=== PATIENT | male | born 1960 | race Caucasian/White ===

== ENCOUNTER 2022-04-16 06:25 | Outpatient (REF) | payer BC, SELFPAY ==
[2022-04-16 06:36] LABS: MANUAL DIFF FLAG NO
[2022-04-16 07:25] LABS: Basophils Absolute Auto 0.1 X10*3/uL (0.0-0.2); Basophils Percent Auto 1.4 % (0-2); Eosinophils Absolute Auto 0.4 X10*3/uL (0.0-0.4); Eosinophils Percent Auto 6.8 % (0-4); Hematocrit 43.8 % (42.0-52.0); Hemoglobin 15.1 g/dl (14.0-18.0); Imm Gran Abs Auto 0.01 X10*3/uL (0.00-0.03); Imm Gran Pct Auto 0.2 % (0.0-0.4); Lymphocytes Absolute Auto 1.5 X10*3/uL (1.2-4.9); Lymphocytes Percent Auto 29.9 % (20-40); Mean Corpuscular HGB Conc 34.5 g/dl (31.0-36.0); Mean Corpuscular Hemoglobin 29.9 pg (27.0-33.0); Mean Corpuscular Volume 86.7 fL (80.0-98.0); Monocytes Absolute Auto 0.6 X10*3/uL (0.1-1.2); Monocytes Percent Auto 11.1 % (2-11); Neutrophils Absolute Auto 2.6 x10*3/uL (2.0-8.3); Neutrophils Percent Auto 50.6 % (45-73); Platelet Count 268 X10*3/uL (160-400); Red Blood Count 5.05 X10*6/uL (4.60-5.80); Red Cell Distribution Width 12.7 % (11.0-16.0); White Blood Count 5.1 X10*3/uL (4.8-10.8)
[2022-04-16 07:43] LABS: Alanine Aminotransferase 23 U/L (0-40); Albumin Level 4.1 g/dL (3.5-5.0); Alkaline Phosphatase 63 U/L (39-117); Anion Gap 14 (12-20); Aspartate Amino Transferase 20 U/L (5-37); Bilirubin Total 0.5 mg/dL (0.0-1.0); Blood Urea Nitrogen 15 mg/dL (9-16); Calcium 8.8 mg/dL (8.4-10.2); Carbon Dioxide 24 mmol/L (22-29); Chloride 106 mmol/L (96-108); Cholesterol 218 mg/dL; Estimated Glomerular Filt Rate > 60; Glucose Fasting 115 mg/dL (60-99); HDL Cholesterol 46 mg/dL; LDL Cholesterol Calculated 155 mg/dl; Potassium 4.1 mmol/L (3.3-5.1); Sodium 140 mmol/L (135-145); Total Protein 6.7 g/dL (6.5-8.0); Triglycerides 85 mg/dL
[2022-04-16 08:05] LABS: Free T4 (Free Thyroxine) 1.24 ng/dL (0.71-1.85); Prostate Specific Antigen 0.39 ng/mL (<0.05-4.0); Thyroid Stimulating Hormone 3.23 uIU/mL (0.32-4.0)
== END 2022-04-16 06:26 | disposition home or self-care (01) ==
LOC: HO.LAB 06:25
PROVIDERS: PCP Internal Medicine; Visit Provider Internal Medicine
DX: Z00.00 Encounter for general adult medical examination without abnormal findings (principal); Z12.5 Encounter for screening for malignant neoplasm of prostate; E03.9 Hypothyroidism, unspecified
CPT/HCPCS: 36415; 80053; 80061; 84153; 84439; 84443; 85025

== ENCOUNTER → 2022-08-06 10:55 | Outpatient (REF) | payer BC, SELFPAY ==
--- NOTE | 2022-08-06 | HM_ITS ---
Conclusion: 1. Patient was monitored for total period of 3 days 2. Baseline was normal sinus rhythm with average heart rate of 65 beats per minute 3. Frequent sinus bradycardia with heart rate below 60 beats per minute 40% of the time 4. Total of 10,181 isolated PVCs accounting for 4.5% of total beats account for frequent PVCs 5. No significant pauses noted 6. Patient reported 4 symptoms with skipped heartbeats correlating with PVCs MTDD
== END ==
LOC: HO.CARD 10:55
PROVIDERS: PCP Internal Medicine; Visit Provider Internal Medicine
DX: R00.2 Palpitations (principal); I49.3 Ventricular premature depolarization
CPT/HCPCS: 93242

== ENCOUNTER → 2022-09-17 10:19 | Outpatient (BNVA) | payer BC, SELFPAY | PROVIDERS: PCP Internal Medicine; Visit Provider Surgery | DX: Z13.89 Encounter for screening for other disorder (principal) ==

== ENCOUNTER 2023-06-16 05:58 | Outpatient (REF) | payer BC, SELFPAY ==
[2023-06-16 07:14] LABS: Basophils Absolute Auto 0.1 X10*3/uL (0.0-0.2); Basophils Percent Auto 0.7 % (0-2); Eosinophils Absolute Auto 0.6 X10*3/uL (0.0-0.4); Eosinophils Percent Auto 8.9 % (0-4); Hematocrit 43.8 % (42.0-52.0); Hemoglobin 15.1 g/dl (14.0-18.0); Imm Gran Abs Auto 0.02 X10*3/uL (0.00-0.03); Imm Gran Pct Auto 0.3 % (0.0-0.4); Lymphocytes Percent Auto 29.4 % (20-40); MANUAL DIFF FLAG SCAN; Mean Corpuscular HGB Conc 34.5 g/dl (31.0-36.0); Mean Corpuscular Hemoglobin 30.6 pg (27.0-33.0); Mean Corpuscular Volume 88.7 fL (80.0-98.0); Mean Platelet Volume 10.3 fL (9.4-12.4); Monocytes Absolute Auto 0.6 X10*3/uL (0.1-1.2); Monocytes Percent Auto 7.9 % (2-11); Neutrophils Absolute Auto 3.7 x10*3/uL (2.0-8.3); Neutrophils Percent Auto 52.8 % (45-73); Platelet Count 286 X10*3/uL (160-400); Red Blood Count 4.94 X10*6/uL (4.60-5.80); Red Cell Distribution Width 12.7 % (11.0-16.0); SCAN SMEAR FLAG 1; White Blood Count 6.9 X10*3/uL (4.8-10.8)
[2023-06-16 07:37] LABS: Alanine Aminotransferase 30 U/L (0-40); Albumin Level 4.1 g/dL (3.5-5.0); Alkaline Phosphatase 74 U/L (39-117); Anion Gap 16 (12-20); Aspartate Amino Transferase 23 U/L (5-37); Bilirubin Total 0.5 mg/dL (0.0-1.0); Blood Urea Nitrogen 14 mg/dL (9-16); Calcium 9.3 mg/dL (8.4-10.2); Carbon Dioxide 23 mmol/L (22-29); Chloride 106 mmol/L (96-108); Cholesterol 162 mg/dL (<200); Estimated Glomerular Filt Rate > 60; Glucose Fasting 101 mg/dL (60-99); HDL Cholesterol 51 mg/dL (>40); LDL Cholesterol Calculated 99 mg/dL (<100); Potassium 3.7 mmol/L (3.3-5.1); Sodium 141 mmol/L (135-145); Triglycerides 60 mg/dL (<150)
[2023-06-16 07:52] LABS: Free T4 (Free Thyroxine) 1.02 ng/dL (0.71-1.85); Thyroid Stimulating Hormone 4.85 uIU/mL (0.32-4.0)
[2023-06-16 08:01] LABS: SLIDE REVIEW VERIFIED
== END 2023-06-16 05:59 | disposition home or self-care (01) ==
LOC: HO.LAB 05:58
PROVIDERS: PCP Internal Medicine; Visit Provider Internal Medicine
DX: E78.00 Pure hypercholesterolemia, unspecified (principal); E03.9 Hypothyroidism, unspecified; I10 Essential (primary) hypertension
CPT/HCPCS: 36415; 80053; 80061; 84439; 84443; 85025

== ENCOUNTER 2023-10-04 14:49 | Emergency (ER) | payer BC, SELFPAY ==
--- NOTE | ~2023-10-04 | XR_ITS ---
EXAMINATION: 1. RADIOGRAPHS RIGHT ANKLE 2. RADIOGRAPHS RIGHT FOOT CLINICAL INFORMATION: Fall. Twisting injury. COMPARISON: None available TECHNIQUE: 3 views of the right ankle and 3 views of the right foot were obtained. FINDINGS: Visualized portion of the distal right tibia and fibula demonstrate no fracture. Ankle mortise is maintained. There is no localized soft tissue swelling of the ankle. No gross ankle joint effusion. Bones of the midfoot are well aligned. Cortical irregularity of the fifth metatarsal suggests old healed fracture. No acute fracture identified within the foot. No significant degenerative changes of the right foot. No localized soft tissue swelling of the foot. No radiopaque foreign body. XR/XR ankle RT min 3V IMPRESSION: No acute fracture of the right ankle or foot.
--- NOTE | ~2023-10-04 | XR_ITS ---
EXAMINATION: 1. RADIOGRAPHS RIGHT ANKLE 2. RADIOGRAPHS RIGHT FOOT CLINICAL INFORMATION: Fall. Twisting injury. COMPARISON: None available TECHNIQUE: 3 views of the right ankle and 3 views of the right foot were obtained. FINDINGS: Visualized portion of the distal right tibia and fibula demonstrate no fracture. Ankle mortise is maintained. There is no localized soft tissue swelling of the ankle. No gross ankle joint effusion. Bones of the midfoot are well aligned. Cortical irregularity of the fifth metatarsal suggests old healed fracture. No acute fracture identified within the foot. No significant degenerative changes of the right foot. No localized soft tissue swelling of the foot. No radiopaque foreign body. XR/XR foot RT min 3V IMPRESSION: No acute fracture of the right ankle or foot.
--- NOTE | 2023-10-04 15:04 | ED_ITS ---
HPI - Extremity Injury (Lower) General Chief Complaint: Extremity Injury, Lower Stated Complaint: R Ankle Injury 10/04/23 Time Seen by Provider: 10/04/23 17:56 Source: patient and family (patient's ) Mode of arrival: ambulatory Limitations: no limitations History of Present Illness HPI Narrative: Patient is a 63 year old assigned male at with no reported medical history presenting to the emergency department today with right ankle pain. Patient states that he stepped on uneven pavement and twisted his right ankle / foot. Patient states that he has pain when he steps on it. Patient denies any head s trike, loss of conciseness, dizziness, lightheadedness, abdominal pain, nausea, vomiting, fever, chills, blurry vision, double vision, loss of vision, chest pain, difficulty breathing, shortness of breath, back pain, night sweats, pain with urination, increased urinary frequency, increased urinary urgency, blood in his urine or stool, syncope or a near syncopal episode, bowel incontinence, bladder incontinence, bowel retention, bladder retention, or any other complaints at this time. MD complaint: ankle injury Onset (ago): hour(s) Severity: mild Severity scale (1-10): 3 Exacerbating factors: nothing Other symptoms: none Related Data Home Medications Medication Instructions Recorded Confirmed amlodipine 10 mg tablet 10 mg PO DAILY 05/13/22 09/17/22 carvedilol 12.5 mg tablet 12.5 mg PO BID 05/13/22 09/17/22 levothyroxine 75 mcg tablet 75 mcg PO DAILY 05/13/22 09/17/22 (Synthroid) tamsulosin 0.4 mg capsule 0.4 mg PO DAILY 05/13/22 09/17/22 venlafaxine 150 mg 150 mg PO DAILY 05/13/22 09/17/22 capsule,extended release 24 hr zolmitriptan 2.5 mg tablet mg PO 05/13/22 09/17/22 Allergies Allergy/AdvReac Type Severity Reaction Status Date / Time No Known Allergies Allergy Verified 09/17/22 10:25 Review of Systems Constitutional: Constitutional: Reports no additional constitutional complaints, Denies chills, Denies fever(s) and Denies night sweats Eyes: Eyes: Reports no additional eye complaints, Denies blurry vision, Denies change in vision, Denies diplopia, Denies eye discharge, Denies loss of vision and Denies eye pain ENT: Denies dizziness Cardiovascular: Cardiovascular: Reports no additional cardiovascular complaints, Denies chest pain, Denies lightheadedness, Denies Loss of Consciousness and Denies dyspnea Respiratory: Respiratory: Reports no additional respiratory complaints and Denies dyspnea Gastrointestinal: Gastrointestinal: Reports no additional gastrointestinal complaints, Denies abdominal pain, Denies melena, Denies hematochezia, Denies change in bowel habits and Denies change in stool character Genitourinary: Genitourinary: Reports no additional male genitourinary complaints, Denies hematuria, Denies oliguria, Denies difficulty urinating, Denies dysuria, Denies urinary frequency, Denies urinary hesitancy, Denies urinary incontinence and Denies urinary urgency Musculoskeletal: Musculoskeletal: Reports no additional musculoskeletal complaints, Denies numbness and Denies tingling Comments: right ankle pain Neurologic: Denies dizziness, Denies loss of vision, Denies numbness and Denies tingling Psychiatric: Psychiatric: Reports no additional psychiatric complaints Endocrine: Endocrine: Reports no additional endocrine complaints Hematologic/Lymphatic: Hematologic/Lymphatic: Reports no additional hematologic/lymphatic complaints Allergic/Immunologic: Allergic/Immunologic: Reports no additional allergic/immunologic complaints PMFSH Past Medical History Attestation statement: The following information was validated with the patient. Source: old records reviewed and nursing notes reviewed Surgical History History of nasal septoplasty (1999) Family History Family History Paternal Grandmother Breast CA Father Prostate cancer Maternal Grandfather Pancreatic cancer Paternal Aunt Skin cancer Paternal Aunt Skin cancer Brother Skin cancer Social History Social History Alcohol intake: current Alcohol intake frequency: holidays/special occasions only Patient Tobacco Use Status: Never used Tobacco Physical Exam Vital Signs: Vital Signs: Last Vital Signs Temp 98.1 F 10/04/23 15:05 Pulse 70 10/04/23 15:05 Resp 18 10/04/23 15:05 BP 139/88 10/04/23 15:05 Pulse Ox 95 10/04/23 15:05 O2 Del Method Room Air 10/04/23 15:05 BMI result Body Mass Index 30.7 Const: General: cooperative, no acute distress, alert and awake Nutritional Appearance: well nourished Orientation/consciousness: patient oriented x3 Limitations: no limitations HEENT: Head: Yes normal to inspection and Yes atraumatic Ears: hearing grossly normal bilaterally and external ears normal General nose exam: Normal external nose present, no nasal discharge noted and no epistaxis Face and sinus: Yes normal facial exam, No abrasion and No laceration Mouth: Normal oral and palatal mucosa present, no drooling and no muffled voice Eyes: General: appearance normal, both eyes and all related structures Periorbital: periorbital findings normal Eyelids: Yes eyelids normal Conjunctivae: conjunctivae normal Pupils: Equal, round and reactive pupils present EOM: EOMs intact bilaterally Neck: Neck: Yes normal visual inspection, Yes full ROM and Yes no lymphadenopathy Chest: Chest palpation & inspection: normal inspection of the chest Resp: Effort & Inspection: normal respiratory effort and able to speak in complete sentences GI: Inspection: Yes normal to inspection Neuro: General: patient oriented x3 and moves all extremities Cranial nerves: Yes Equal, round and reactive pupils present Cognition (Neuro): normal cognition Motor exam (neuro): 5/5 motor strength present throughout Sensory Exam: Normal double simultaneous stimulation for sensation Coordination: [id number] test normal Extrem: General: Yes normal to inspection, Yes full ROM and Yes capillary refill normal Psych: Appearance: grossly normal Mental Status: mental status grossly normal Affect: normal affect Attitude: cooperative Thought process: Normal thought process present Thought content: Normal thought content present Insight: Good insight present (Psych) Course Course Course Narrative: RME: 63 year-old M w/ PMHx presenting to the ED c/o R ankle pain s/p twist and fall on uneven pavement. denies head trauma or LOC. Ambulated initially R ankle & foot with notable swelling and ttp. NV intact XRs ordered Full HPI, ROS and PE to be performed by primary ED provider. Medical Decision Making Medical Decision Making MDM Narrative: Patient is a 63 year old assigned male at with no reported medical history presenting to the emergency department today with right foot and ankle pain. Patient's physical exam was unremarkable. Patient's right foot and ankle x-ray showed no acute process. I explained my physical exam findings as well as all test results to the patient and the patient's . I answered all questions asked by the patient and the patient's . Patient's right foot was placed in a walking boot, without incident. Patient's PMS was intact prior to and after boot placement. I stressed the importance of the patient taking his medication as prescribed. I stressed the importance of the patient following up with his primary care provider. I stressed the importance of the patient returning to the emergency department immediately if his symptoms were to worsen or if he were to develop any dizziness, shortness of breath, difficulty breathing, chest pain, blurry vision, loss of vision, nausea, vomiting, abdominal pain, fever, chills, back pain, or any other complaints. Patient verbalized agreement and understanding with this treatment plan and discharge. Differential Diagnosis Differential Diagnoses: The differential diagnosis associated with the presentation includes Right foot sprain Right foot strain Right foot pain Right foot fracture Right ankle sprain Right ankle strain Right ankle fracture Admission/Observation Consideration of admission/observation: Escalation of care including admission/observation considered Patient would have been admitted to the hospital had his work up had any findings where hospital admission was appropriate and his clinical presentation warranted hospital admission. Independent Interpretation I performed an independent interpretation of an: Plain X-Ray Interpretation: My interpretation is in agreement with the radiologist's impression of these imaging studies. EXAMINATION: 1. RADIOGRAPHS RIGHT ANKLE 2. RADIOGRAPHS RIGHT FOOT CLINICAL INFORMATION: Fall. Twisting injury. COMPARISON: None available TECHNIQUE: 3 views of the right ankle and 3 views of the right foot were obtained. FINDINGS: Visualized portion of the distal right tibia and fibula demonstrate no fracture. Ankle mortise is maintained. There is no localized soft tissue swelling of the ankle. No gross ankle joint effusion. Bones of the midfoot are well aligned. Cortical irregularity of the fifth metatarsal suggests old healed fracture. No acute fracture identified within the foot. No significant degenerative changes of the right foot. No localized soft tissue swelling of the foot. No radiopaque foreign body. XR/XR foot RT min 3V IMPRESSION: No acute fracture of the right ankle or foot. Dictated By: Paramjit Powell MD Signed By: Electronically signed by Paramjit Powell MD 10/04/23 0537 Radiology Impression Discussion of test interpretation with radiology: I have reviewed the radiologist's reading. Procedures Orthopedic Splinting/Casting Injury #1: Side: right Lower Extremity Injury Location: ankle Lower Extremity Immobilizer: boot orthosis Discharge Plan Discharge Clinical Impression: Ankle sprain Patient Disposition: Home, Self-Care Instructions: Ankle Sprain (DC) Additional Instructions: Follow up with your primary care provider. Return to the emergency department immediately if your symptoms worsen or if you develop any dizziness, shortness of breath, difficulty breathing, chest pain, blurry vision, loss of vision, nausea, vomiting, abdominal pain, fever, chills, back pain, or any other complaints. Prescriptions: No Action amlodipine 10 mg tablet 10 mg PO DAILY tamsulosin 0.4 mg capsule 0.4 mg PO DAILY carvedilol 12.5 mg tablet 12.5 mg PO BID venlafaxine 150 mg capsule,extended release 24hr 150 mg PO DAILY levothyroxine [Synthroid] 75 mcg tablet 75 mcg PO DAILY zolmitriptan 2.5 mg tablet PO Referrals: [facility] [Provider Group] (Call to establish and follow up with an orthopedic provider.) Clem Blackman MD [Primary Care Provider] - Stand Alone Forms: Work/School Release Print Language: Honduran
[2023-10-04 15:05] VITALS: BP 139/88; PULSE 70; RESP 18; TEMP 36.7; O2SAT 95; BMI 30.7
== END 2023-10-04 19:01 | disposition home or self-care (01) ==
LOC: HO.ED 18:20
PROVIDERS: Emergency Provider Emergency Medicine; PCP Internal Medicine
DX: S93.401A Sprain of unspecified ligament of right ankle, initial encounter (principal); X50.1XXA Overexertion from prolonged static or awkward postures, initial encounter; Y93.89 Activity, other specified; Y92.480 Sidewalk as the place of occurrence of the external cause; Y99.9 Unspecified external cause status
CPT/HCPCS: 73610; 73630; 99283

== ENCOUNTER 2025-02-01 07:48 | Outpatient (AMB) | payer BC, SELFPAY ==
--- NOTE | 2025-02-01 07:50 | MHC.PC.OV ---
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 Compliant with amlodipine 10 mg daily for management of blood pressure with BP in the office 124/82. He does have a history of PVCs s/p ablation in 2022. Currently no shortness a breath, chest pain, lightheadedness, palpitations Endo-overdue for TSH labs to establish thyroid function. He is compliant with levothyroxine Psych-depression levels are well controlled with venlafaxine BPH-on Flomax with good effect ROS: See HPI, otherwise negative Exam: Constitutional - Awake and Alert, No apparent distress Eyes - PERRLA, EOMI Cardiovascular - S1S2, RRR, No edema Respiratory - Normal lung expansion, Normal respiratory effort, No respiratory distress, CTA bilaterally Extremities - no calf tenderness bilaterally, no swelling Skin - Warm/Dry Neurological - Alert & oriented x3 Psychological - Appropriate affect PFSH Medical History (Updated 02/01/25 @ 08:23 by ANNABELLA Armenta) Obesity Depression MARK (obstructive sleep apnea) BPH (benign prostatic hyperplasia) Migraine aura occurring with and without headache Hypothyroidism Hyperlipidemia Hypertension Surgical History (Updated 02/01/25 @ 08:22 by ANNABELLA Armenta) H/O cardiac radiofrequency ablation History of nasal septoplasty (1999) Family History Paternal Grandmother Breast CA Father Prostate cancer Maternal Grandfather Pancreatic cancer Paternal Aunt Skin cancer Paternal Aunt Skin cancer Brother Skin cancer Social History Alcohol intake: current Alcohol intake frequency: holidays/special occasions only Patient Tobacco Use Status: Never used Tobacco Physical exam (Primary Care) Vital Signs: Last Vital Signs Temp 98.2 F 02/01/25 07:56 Pulse 68 02/01/25 07:56 Resp 14 02/01/25 07:56 BP 124/82 02/01/25 07:56 Pulse Ox 97 02/01/25 07:56 Oxygen Delivery Method Room Air 02/01/25 07:56 BMI result Body Mass Index 31.5 Tobacco/Smoking Status: Tobacco use Status Patient Tobacco Use Status Never used Tobacco 02/01/25 07:51 Coding Level of Care Code New Pt Level 4 (69273) Complex EM visit Add On G2211 Diagnoses Hypertension I10 Hyperlipidemia E78.5 Hypothyroidism E03.9 Migraine aura occurring with and without headache G43.109 BPH (benign prostatic hyperplasia) N40.0 Obesity E66.9 Assessment & Plan Assessment & Plan (1) Hypertension: Code(s): I10 - Essential (primary) hypertension Category: Medical Plan: Controlled with blood pressure 124/82. Continue amlodipine 10 mg daily. (2) Hyperlipidemia: Code(s): E78.5 - Hyperlipidemia, unspecified Category: Medical Plan: Lipid panel ordered. Continue atorvastatin 10 mg daily. Recommend diet low in saturated fat and and healthy oils. Recommend increased activity. He is referred to dietitian (3) Hypothyroidism: Code(s): E03.9 - Hypothyroidism, unspecified Category: Medical Plan: TSH with reflex free T4 ordered. Continue levothyroxine 75 mcg daily, dose to be adjusted as appropriate pending results of study. (4) Migraine aura occurring with and without headache: Code(s): G43.109 - Migraine with aura, not intractable, without status migrainosus Category: Medical Plan: Stable. Continue sumatriptan as needed. (5) BPH (benign prostatic hyperplasia): Code(s): N40.0 - Benign prostatic hyperplasia without lower urinary tract symptoms Category: Medical Plan: Stable. PSA ordered. Continue tamsulosin 0.4 mg daily (6) Obesity: Code(s): E66.9 - Obesity, unspecified Category: Medical Plan: Weight loss efforts encouraged. Discussed healthy diet and exercise. He is referred to dietitian for further assistance. He is interested in GLP 1 medications. I have advised the patient to reach out to his insurance company to find out which medications may be covered. He can reach out to the office. Plan Follow-up in 6 months. Labs to be completed prior to the visit. Referral placed to nutrition. Orders: Orders Basic Metabolic Panel Today E03.9 - Hypothyroidism, unspecified, E78.5 - Hyperlipidemia, unspecified, G43.109 - Migraine with aura, not intractable, without status migrainosus, G47.33 - Obstructive sleep apnea (adult) (pediatric), I10 - Essential (primary) hypertension, N40.0 - Benign prostatic hyperplasia without lower urinary tract symptoms Lipid Panel Today E03.9 - Hypothyroidism, unspecified, E78.5 - Hyperlipidemia, unspecified, G43.109 - Migraine with aura, not intractable, without status migrainosus, G47.33 - Obstructive sleep apnea (adult) (pediatric), I10 - Essential (primary) hypertension, N40.0 - Benign prostatic hyperplasia without lower urinary tract symptoms Complete Blood Count Auto Diff Today E03.9 - Hypothyroidism, unspecified, E78.5 - Hyperlipidemia, unspecified, G43.109 - Migraine with aura, not intractable, without status migrainosus, G47.33 - Obstructive sleep apnea (adult) (pediatric), I10 - Essential (primary) hypertension, N40.0 - Benign prostatic hyperplasia without lower urinary tract symptoms Hemoglobin A1c Today E03.9 - Hypothyroidism, unspecified, E78.5 - Hyperlipidemia, unspecified, G43.109 - Migraine with aura, not intractable, without status migrainosus, G47.33 - Obstructive sleep apnea (adult) (pediatric), I10 - Essential (primary) hypertension, N40.0 - Benign prostatic hyperplasia without lower urinary tract symptoms Liver Panel Today E03.9 - Hypothyroidism, unspecified, E78.5 - Hyperlipidemia, unspecified, G43.109 - Migraine with aura, not intractable, without status migrainosus, G47.33 - Obstructive sleep apnea (adult) (pediatric), I10 - Essential (primary) hypertension, N40.0 - Benign prostatic hyperplasia without lower urinary tract symptoms TSH reflex Free T4 Today E03.9 - Hypothyroidism, unspecified, E78.5 - Hyperlipidemia, unspecified, G43.109 - Migraine with aura, not intractable, without status migrainosus, G47.33 - Obstructive sleep apnea (adult) (pediatric), I10 - Essential (primary) hypertension, N40.0 - Benign prostatic hyperplasia without lower urinary tract symptoms Prostate Specific Antigen Today E03.9 - Hypothyroidism, unspecified, E78.5 - Hyperlipidemia, unspecified, G43.109 - Migraine with aura, not intractable, without status migrainosus, G47.33 - Obstructive sleep apnea (adult) (pediatric), I10 - Essential (primary) hypertension, N40.0 - Benign prostatic hyperplasia without lower urinary tract symptoms Testosterone, Free/Total Today E66.9 - Obesity, unspecified, F32.A - Depression, unspecified 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
--- OUTSIDE RECORDS SUMMARY | 2025-02-01 07:50 | XMS_ITS | Clinical Summary ---
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 Ship Runner Name Role Phone Unavailable Primary Care Provider Unavailabl e Surgical History Surgery Date Site/Laterality Comments OTHER SURGICAL HISTORY PROCEDURE: ---- OTHER ----; COMMENT: deviated septum surgery COLONOSCOPY 11/04/2014 PROCEDURE: HISTORICAL COLONOSCOPY; COMMENT: normal CARDIAC CATHETERIZATION 10/2020 PROCEDURE: HISTORICAL CARDIAC CATH; COMMENT: myocardial bridging Medical History Medical History Date Comments Migraines DX:Migraines HTN (hypertension) 04/09/2013 DX:HTN (hyper tension) BPH (benign prostatic hyperplasia) 04/09/2013 DX:BPH (benign prostatic hyperplasia) Subclinical hypothyroidism 04/09/2013 DX:[place]za bclinical hypothyroidism Anxiety DX:Anxiety Migraine DX:Migraine COVID-19 virus infection 07/2020 DX:COVI D-19 virus infection Family History Medical History Relation Name Comments Heart attack Aunt age 39 Heart attack Brother age 54 Other: skin ca Brother Other: valve dz Brother Diabetes Grandparent Lung cancer Maternal Grandfather Heart attack Maternal Grandmother age 60 Heart attack Mother early CAD (40's ) and 70's Migraines Mother Hypertension Mother's side Heart attack Other nephew 33 Pancreatic cancer Paternal Grandfather Breast cancer Paternal Grandmother Heart attack Sister Migraines Uncle Relation Name Status Comments Aunt Brother Grandparent Maternal Grandfather Maternal Grandmother Mother Mother's side Other Paternal Grandfather Paternal Grandmother Sister Uncle Social History Tobacco Use Types Packs/Day Years Used Date Smoking Tobacco: Never Smokeless Tobacco: Never Alcohol Use Standard Drinks/Week Comments Yes 0 (1 standard drink = 0.6 oz pur e alcohol) Sex and Gender Information Value Date Recorded Sex Assigned at Not on file Legal Sex Male 10:24 AM EST Gender Identity Not on file Sexual Orientation Not on file Obstetrics History Plan of Treatment Upcoming Encounters Date Type Department Care Team (Late st Contact Info) Description 04/19/2025 9:30 AM EDT Office Visit Adult Medicine [facility] [place] [address] [place] [address] Donny Dumont MD [address] [place] [address] Health Maintenance Due Date Last Done Comments Pneumococcal Vaccine: 50+ Years (1 of 1 - PCV) 2011 DTaP,Tdap,and Td Vaccines (2 - Td or Tdap) 02/12/2023 02/12/2013 COVID-19 Vaccine ( season) 2024 12/21/2021, 07/30/2021, 01/28/2021, Additional history exists Cholesterol Screening (Lipid Panel) 01/04/2025 Colorectal Cancer Screening: Colonoscopy 01/04/2025 Depression Screening 01/04/2025 HIV Screening 01/04/2025 Hepatitis C Screening 01/04/2025 Hypertension/CHF/CAD Annual BMP Blood Test 01/04/2025 Social Influencers of Health Screening 01/04/2025 Influenza Vaccine (Season Ended) 2025 06/03/2021, 06/08/2018, 06/08/2017, Additional history exists RSV Immunization Adult Patients (1 - 1-dose 75+ series) 2036 Zoster Vaccines Completed 12/15/2018, 07/05/2018 HIB Vaccines Aged Out No longer eligi ble based on patient's age to complete this topic HPV Vaccines Aged Out No longer eligi ble based on patient's age to complete this topic Hepatitis A Vaccines Aged Out No long er eligible based on patient's age to complete this topic Hepatitis B Vaccines Aged Out No long er eligible based on patient's age to complete this topic IPV Vaccines Aged Out No longer eligi ble based on patient's age to complete this topic MMR Vaccines Aged Out No longer eligi ble based on patient's age to complete this topic Meningococcal ACWY Vaccine Aged Out N o longer eligible based on patient's age to complete this topic Meningococcal B Vaccine Aged Out No l onger eligible based on patient's age to complete this topic Pneumococcal Vaccine: Pediatrics (0 to 5 Years) and At-Risk Patients (6 to 64 Years) Aged Out No longer eligible based on patient's age to complete this topic RSV Immunization Patients Under 20 months Aged Out No longer eligible based on patient's age to complete this topic Varicella Vaccines Aged Out No longer eligible based on patient's age to complete this topic Insurance [facility]
[2025-02-01 07:56] VITALS: BP 124/82; PULSE 68; RESP 14; TEMP 36.8; O2SAT 97; BMI 31.5
== END 2025-02-01 08:27 | disposition home or self-care (01) ==
LOC: HO.HMCHD 07:48
PROVIDERS: PCP Physician Assistant; Visit Provider Physician Assistant
DX: I10 Essential (primary) hypertension (principal); E78.5 Hyperlipidemia, unspecified; E03.9 Hypothyroidism, unspecified; G43.109 Migraine with aura, not intractable, without status migrainosus; N40.0 Benign prostatic hyperplasia without lower urinary tract symptoms; E66.9 Obesity, unspecified

== ENCOUNTER 2025-02-01 07:48 | Outpatient (REF) | payer BC, SELFPAY ==
[2025-02-01 08:57] LABS: MANUAL DIFF FLAG NO
[2025-02-01 09:29] LABS: Basophils Percent Auto 0.6 % (0-2); Eosinophils Absolute Auto 0.2 X10*3/uL (0.0-0.4); Hematocrit 44.4 % (42.0-52.0); Hemoglobin 15.6 g/dl (14.0-18.0); Imm Gran Abs Auto 0.02 X10*3/uL (0.00-0.03); Imm Gran Pct Auto 0.3 % (0.0-0.4); Lymphocytes Absolute Auto 1.4 X10*3/uL (1.2-4.9); Lymphocytes Percent Auto 22.4 % (20-40); Mean Corpuscular HGB Conc 35.1 g/dl (31.0-36.0); Mean Corpuscular Hemoglobin 30.5 pg (27.0-33.0); Mean Corpuscular Volume 86.7 fL (80.0-98.0); Mean Platelet Volume 9.8 fL (9.4-12.4); Monocytes Absolute Auto 0.6 X10*3/uL (0.1-1.2); Neutrophils Percent Auto 64.7 % (45-73); Platelet Count 291 X10*3/uL (160-400); Red Blood Count 5.12 X10*6/uL (4.60-5.80); White Blood Count 6.2 X10*3/uL (4.8-10.8)
[2025-02-01 09:51] LABS: Estimated Average Glucose 108 mg/dL; Hemoglobin A1c % 5.4 % (<6.0)
[2025-02-01 10:04] LABS: Alanine Aminotransferase 31 U/L (0-40); Albumin Level 4.4 g/dL (3.5-5.0); Alkaline Phosphatase 76 U/L (39-117); Anion Gap 12 (12-20); Aspartate Amino Transferase 27 U/L (5-37); Bilirubin Direct 0.2 mg/dL (0.0-0.5); Bilirubin Total 0.6 mg/dL (0.0-1.0); Blood Urea Nitrogen 11 mg/dL (9-16); Carbon Dioxide 28 mmol/L (22-29); Chloride 107 mmol/L (96-108); Cholesterol 162 mg/dL (<200); Estimated Glomerular Filt Rate > 60; Glucose Random 101 mg/dL (60-115); HDL Cholesterol 54 mg/dL (>40); LDL Cholesterol Calculated 93 mg/dL (<100); Sodium 143 mmol/L (135-145); Total Protein 7.1 g/dL (6.5-8.0); Triglycerides 79 mg/dL (<150)
[2025-02-01 10:20] LABS: TSH reflex Free T4 3.02 uIU/mL (0.32-4.0)
[2025-02-01 10:24] LABS: Prostate Specific Antigen 0.68 ng/mL (<0.05-4.0)
[2025-02-07 17:33] LABS: Testosterone, Free 37.4 pg/mL (35.0-155.0); Testosterone, Total 251 ng/dL (250-1100)
== END 2025-02-01 07:49 | disposition home or self-care (01) ==
LOC: HO.LAB 07:48
PROVIDERS: PCP Physician Assistant; Visit Provider Physician Assistant
DX: I10 Essential (primary) hypertension (principal); E66.9 Obesity, unspecified; F32.A Depression, unspecified; E78.5 Hyperlipidemia, unspecified; E03.9 Hypothyroidism, unspecified; G43.109 Migraine with aura, not intractable, without status migrainosus; N40.0 Benign prostatic hyperplasia without lower urinary tract symptoms; G47.33 Obstructive sleep apnea (adult) (pediatric); Z12.5 Encounter for screening for malignant neoplasm of prostate; Z13.1 Encounter for screening for diabetes mellitus
CPT/HCPCS: 36415; 80048; 80061; 80076; 83036; 84153; 84402; 84403; 84443; 85025

== ENCOUNTER 2025-08-16 08:53 | Outpatient (AMB) | payer BC, SELFPAY ==
--- NOTE | 2025-08-16 09:07 | MHC.PC.OV ---
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 Accompanied by: Spouse Allergies No Known Allergies Allergy (Verified 08/16/25 09:08) Medication List - Last Reconciled 08/17/25 by ANNABELLA Aremnta amlodipine 10 mg PO DAILY antiarthritic combination no.2 (glucosamine-chondroitin) mg PO aspirin 325 mg PO DAILY atorvastatin 10 mg PO DAILY docosahexaenoic acid-epa 120-180 mg (Fish Oil) 1 cap PO DAILY lactobacillus combination no.4 (Probiotic) 3,000 mmu cells PO DAILY levothyroxine 75 mcg PO DAILY 90 days multivitamin 1 tab PO DAILY tamsulosin 0.4 mg PO DAILY tirzepatide (weight loss) (Zepbound) 2.5 mg (0.5 mL) subcut QWEEK venlafaxine ER 150 mg PO DAILY zolmitriptan mg PO PRN Tobacco use date assessed: 08/16/25 Fall risk assessment: 1 Fall in past year Last assessed Fall Risk: 08/16/25 Dental Screening Dental Screen Date: 08/16/25 Did you have a dental visit in the last 12 months?: Yes Did you have a dental problem in the last 6 months where you did not have access to dental care?: No Was dental information given to patient?: Patient has dentist HPI HPI Comments History of Present Illness Details 64-year-old male with history of hypertension, hyperlipidemia, hypothyroidism, depression, BPH presents to the office today accompanied by his for management of chronic conditions. HTN/HLD- continues on atorvastatin for management of his cholesterol levels. Controlled at last visit. Compliant with amlodipine 10 mg daily for management of blood pressure with BP in the office 138/88. He does have a history of PVCs s/p ablation in 2022. Currently no shortness a breath, chest pain, lightheadedness, palpitations Endo-TSH normal at last visit, due for recheck. He is compliant with levothyroxine Psych-depression levels are well controlled with venlafaxine BPH-on Flomax with good effect OA- managed with OTC supplement. r/t prior employment (now retired) Obesity- working on weight loss efforts. Interested in GLP-1 ROS: See HPI, otherwise negative Exam: Constitutional - Awake and Alert, No apparent distress Eyes - PERRLA, EOMI Cardiovascular - S1S2, RRR, No edema Respiratory - Normal lung expansion, Normal respiratory effort, No respiratory distress, CTA bilaterally Extremities - no calf tenderness bilaterally, no swelling Skin - Warm/Dry Neurological - Alert & oriented x3 Psychological - Appropriate affect PFSH Medical History (Updated 02/01/25 @ 08:23 by ANNABELLA Armenta) Obesity Depression MARK (obstructive sleep apnea) BPH (benign prostatic hyperplasia) Migraine aura occurring with and without headache Hypothyroidism Hyperlipidemia Hypertension Surgical History (Updated 02/01/25 @ 08:22 by ANNABELLA Armenta) H/O cardiac radiofrequency ablation History of nasal septoplasty (1999) Family History Paternal Grandmother Breast CA Father Prostate cancer Maternal Grandfather Pancreatic cancer Paternal Aunt Skin cancer Paternal Aunt Skin cancer Brother Skin cancer Social History Housing: Apartment Alcohol intake: current Alcohol intake frequency: holidays/special occasions only Patient Tobacco Use Status: Former Tobacco user Tobacco use type: Cigar e-Cigarette/Vaping Use: Never Used service: No Current occupational status: employed Current occupation: [employer] Questionnaire PHQ-9 Over the last 2 weeks, how often have you been bothered by any of the following problems? 1. Little interest or pleasure in doing things: not at all 2. Feeling down, depressed, or hopeless: not at all 3. Trouble falling or staying asleep, or sleeping too much: several days 4. Feeling tired or having little energy: not at all 5. Poor appetite or overeating: several days 6. Feeling bad about yourself - or that you are a failure or have let yourself or your family down: not at all 7. Trouble concentrating on things, such as reading the newspaper or watching television: not at all 8. Moving or speaking so slowly that other people could have noticed. Or the opposite - being so fidgety or restless that you have been moving around a lot more than usual: not at all 9. Thoughts that you would be better off or of hurting yourself in some way: not at all Total score: 2 Source: Developed by Drs. Eldon Dailey, Lisseth Johns, Fam Cleary and colleagues, with an educational esme from [employer]. Thrive Questionnaire Date Thrive assessed: 08/16/25 I am a: Patient What is your living situation today?: I have a steady place to live Within the past 12 months, did the food you bought not last and you didn't have the money to get more?: Never true Within the past 12 months, did you worry whether your food would run out before you got money to buy more?: Never true Do you have trouble paying for medicines?: No Do you have trouble getting transportation to medical appointments?: No Do you have trouble paying your heating and electricity bill?: No Do you have trouble taking care of your child, family member or friend?: No Do you have trouble with day-to-day activities such as bathing, preparing meals, shopping, managing finances, etc.?: No Are you currently unemployed and looking for a job?: No Are you interested in more education?: Yes THRIVE Score: 0 AUDIT C Alcohol Use Questionnaire (AUDIT-C) 1. How often do you have a drink containing alcohol?: 2-4 times a month 2. How many drinks containing alcohol do you have on a typical day when you are drinking?: 1 or 2 3. How often do you have six or more drinks on one occasion?: Never Total Score: 2 ANDRE-7 AMB Questionnaire ANDRE-7 Date ANDRE - 7 assessed: 08/16/25 Feeling nervous, anxious, or on edge: 0 = Not at all Not being able to stop or control worryin = Several days Worrying too much about different things: 1 = Several days Trouble relaxin = Not at all Being so restless that it is hard to sit still: 0 = Not at all Becoming easily annoyed or irritable: 0 = Not at all Feeling afraid as if something awful might happen: 0 = Not at all Total ANDRE-7 score (0-4 normal; 5-9 mild; 10-14 moderate; 15-21 severe): 2 Source: Developed by Drs. Eldon Dailey, Lisseth Johns, Fam Cleary and colleagues, with an educational esme from [employer]. Physical exam (Primary Care) Vital Signs: Last Vital Signs Temp 98.4 F 08/16/25 09:14 Pulse 82 08/16/25 09:14 Resp 18 08/16/25 09:14 BP 138/88 08/16/25 09:14 Pulse Ox 95 08/16/25 09:14 Oxygen Delivery Method Room Air 08/16/25 09:14 BMI result Body Mass Index 31.8 Tobacco/Smoking Status: Tobacco use Status Tobacco use date assessed 08/16/25 08/16/25 09:16 Patient Tobacco Use Status Former Tobacco user 08/16/25 09:16 Tobacco use type Cigar 08/16/25 09:16 e-Cigarette/Vaping Use Never Used 08/16/25 09:16 PHQ-9: PHQ-9 Score PHQ-9: Total score 2 08/16/25 10:06 Thrive Assessment: Date of Thrive Assessment Date Thrive assessed 08/16/25 08/16/25 09:16 Coding Level of Care Code Est Pt Level 4 (12753) Complex visit Add On G2211 Diagnoses Hypertension I10 Hyperlipidemia E78.5 Hypothyroidism E03.9 Migraine aura occurring with and without headache G43.109 BPH (benign prostatic hyperplasia) N40.0 Obesity E66.9 Assessment & Plan Assessment & Plan (1) Hypertension: Code(s): I10 - Essential (primary) hypertension Category: Medical Plan: Controlled with blood pressure 124/82. Continue amlodipine 10 mg daily. (2) Hyperlipidemia: Code(s): E78.5 - Hyperlipidemia, unspecified Category: Medical Plan: Lipid panel ordered. Continue atorvastatin 10 mg daily. Recommend diet low in saturated fat and and healthy oils. Recommend increased activity. He is referred to dietitian (3) Hypothyroidism: Code(s): E03.9 - Hypothyroidism, unspecified Category: Medical Plan: TSH with reflex free T4 ordered. Continue levothyroxine 75 mcg daily, dose to be adjusted as appropriate pending results of study. (4) Migraine aura occurring with and without headache: Code(s): G43.109 - Migraine with aura, not intractable, without status migrainosus Category: Medical Plan: Stable. Continue sumatriptan as needed. (5) BPH (benign prostatic hyperplasia): Code(s): N40.0 - Benign prostatic hyperplasia without lower urinary tract symptoms Category: Medical Plan: Stable. PSA ordered. Continue tamsulosin 0.4 mg daily (6) Obesity: Code(s): E66.9 - Obesity, unspecified Category: Medical Plan: Weight loss efforts encouraged. Discussed healthy diet and exercise. 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 Tirzepatide ordered. Would benefit from this given history of cvd, obesity, and mark which would also prevent future comorbitidies. Continue with diet lower in calories with increased protein, fruits, vegetables and limiting refined sugar, simple carbohydrates, highly processed foods. Recommend at least 150 minutes of moderate intensity exercise weekly Plan Follow-up in 6 months. Labs ordered Orders: Orders Basic Metabolic Panel 08/16/25 E03.9 - Hypothyroidism, unspecified, E66.9 - Obesity, unspecified, E78.5 - Hyperlipidemia, unspecified, I10 - Essential (primary) hypertension Hemoglobin A1c 08/16/25 E03.9 - Hypothyroidism, unspecified, E66.9 - Obesity, unspecified, E78.5 - Hyperlipidemia, unspecified, I10 - Essential (primary) hypertension Lipid Panel 08/16/25 E03.9 - Hypothyroidism, unspecified, E66.9 - Obesity, unspecified, E78.5 - Hyperlipidemia, unspecified, I10 - Essential (primary) hypertension Liver Panel 08/16/25 E03.9 - Hypothyroidism, unspecified, E66.9 - Obesity, unspecified, E78.5 - Hyperlipidemia, unspecified, I10 - Essential (primary) hypertension TSH reflex Free T4 08/16/25 E03.9 - Hypothyroidism, unspecified, E66.9 - Obesity, unspecified, E78.5 - Hyperlipidemia, unspecified, I10 - Essential (primary) hypertension Medications: New tirzepatide (weight loss) (Zepbound) for 4 weeks 2.5 mg (0.5 mL) subcut QWEEK 2 mL 0RF E66.9 - Obesity, unspecified, E78.5 - Hyperlipidemia, unspecified, G47.33 - Obstructive sleep apnea (adult) (pediatric), I10 - Essential (primary) hypertension
[2025-08-16 09:14] VITALS: BP 138/88; PULSE 82; RESP 18; TEMP 36.9; O2SAT 95; BMI 31.8
== END 2025-08-16 09:49 | disposition home or self-care (01) ==
LOC: HO.HMCHD 08:54
PROVIDERS: PCP Physician Assistant; Visit Provider Physician Assistant
DX: I10 Essential (primary) hypertension (principal); E78.5 Hyperlipidemia, unspecified; E03.9 Hypothyroidism, unspecified; G43.109 Migraine with aura, not intractable, without status migrainosus; N40.0 Benign prostatic hyperplasia without lower urinary tract symptoms; E66.9 Obesity, unspecified

== ENCOUNTER 2025-08-16 09:56 | Outpatient (REF) | payer BC, SELFPAY ==
[2025-08-16 11:18] LABS: Alanine Aminotransferase 27 U/L (0-40); Albumin Level 4.6 g/dL (3.5-5.0); Alkaline Phosphatase 77 U/L (39-117); Anion Gap 13 (12-20); Aspartate Amino Transferase 28 U/L (5-37); Blood Urea Nitrogen 13 mg/dL (9-16); Calcium 9.4 mg/dL (8.4-10.2); Carbon Dioxide 28 mmol/L (22-29); Chloride 107 mmol/L (96-108); Cholesterol 165 mg/dL (<200); Estimated Glomerular Filt Rate > 60; HDL Cholesterol 56 mg/dL (>40); Potassium 3.8 mmol/L (3.3-5.1); Sodium 144 mmol/L (135-145); Total Protein 7.1 g/dL (6.5-8.0); Triglycerides 95 mg/dL (<150)
== END 2025-08-16 09:57 | disposition home or self-care (01) ==
LOC: HO.10HDL 09:56
PROVIDERS: Visit Provider Physician Assistant
DX: I10 Essential (primary) hypertension (principal); E78.5 Hyperlipidemia, unspecified; E03.9 Hypothyroidism, unspecified; E66.9 Obesity, unspecified; Z13.1 Encounter for screening for diabetes mellitus
CPT/HCPCS: 36415; 80048; 80061; 80076; 83036; 84443